=== PATIENT | female | born 1935 | race Caucasian/White ===

== ENCOUNTER 2021-11-28 11:41 | Inpatient (IN) ==
[2021-11-28] MEDS ORDERED: ONDANSETRON 4 MG/2 ML VIAL IV PRN (13:51)
[2021-11-28] MEDS ORDERED: ACETAMINOPHEN 325 MG TABLET PO PRN (13:51)
[2021-11-28] MEDS ORDERED: GLUCAGON 1 MG VIAL IM PRN (13:51)
[2021-11-28] MEDS ORDERED: MORPHINE 2 MG/1 ML SYRINGE IV PRN (13:51)
[2021-11-28] MEDS ORDERED: ZALEPLON 5 MG CAPSULE PO PRN (13:51)
[2021-11-28] MEDS ORDERED: DEXTROSE 10% 250 ML BAG IV PRN (13:51)
[2021-11-28] MEDS ORDERED: hydrALAZINE 20 MG/1 ML VIAL IV PRN (13:51)
[2021-11-28 14:37] LABS: Basophils % 0.5 % (0.0-0.8); Eosinophils # 0.1 10*3/uL (0.0-0.87); Eosinophils % 1.5 % (0.00-10.9); Hematocrit 36.6 VOL% (35.7-47.0); Hemoglobin 11.4 GM/DL (12.0-16.0); Immature Granulocytes % 0.5 %; Immature Granulocytes Absolute 0.04 #; Lymphocytes # 0.9 10*3/uL (1.4-4.0); Lymphocytes % 12.7 % (21.3-54.2); Mean Corpuscular HGB Conc 31.1 GM/DL (32-36); Mean Platelet Volume 11.3 FL (9.6-12.0); Monocytes % 7.3 % (1.7-12.7); Neutrophils % 77.5 % (38.7-73.9); Platelet Count 169 T/CUMM (130-400); Red Blood Count 4.16 MC/CUMM (3.8-5.5); Red Cell Distribution Width 14.4 % (9.3-17.3); White Blood Count 7.4 T/CUMM (4-12)
[2021-11-28 14:51] LABS: Albumin 2.7 G/DL (3.4-5.0); Bilirubin,Total 1.1 MG/DL (0.20-1.00); Calcium 8.6 MG/DL (8.5-10.1); Osmolality,Calculated 280.5 MOS/KG (273-304); Potassium 3.4 MMOL/L (3.5-5.1); Total Protein 6.8 G/DL (6.4-8.2)
[2021-11-28] MEDS ORDERED: POTASSIUM CHLORIDE 20 MEQ TABLET PO ONE (15:24)
[2021-11-28 16:19] LABS: Hepatitis B Core IgM Quant 0.14 Index; Hepatitis B Surface Ag Quant < 0.10 Index; Hepatitis B Surface Ag Result Non-Reactive (NonReactive); Hepatitis C Virus Ab Quant 0.05 Index; Hepatitis C Virus Ab Result Non-Reactive (NonReactive)
[2021-11-28] MEDS: POTASSIUM CHLORIDE INJ 20 MEQ in LACTATED RINGERS 1,000 ML IV SCH (19:19)
[2021-11-28] MEDS: DOCUSATE SODIUM 100 MG CAPSULE PO SCH (22:02)
[2021-11-28] MEDS: DONEPEZIL 10 MG TABLET PO SCH (22:02)
[2021-11-29] MEDS: POTASSIUM CHLORIDE INJ 20 MEQ in LACTATED RINGERS 1,000 ML IV SCH ×2 (04:30→14:55)
[2021-11-29 06:02] LABS: Albumin 2.5 G/DL (3.4-5.0); Bilirubin,Total 3.8 MG/DL (0.20-1.00); Calcium 8.6 MG/DL (8.5-10.1); Osmolality,Calculated 279.5 MOS/KG (273-304); Total Protein 6.9 G/DL (6.4-8.2)
[2021-11-29 06:08] LABS: Basophils % 0.5 % (0.0-0.8); Eosinophils % 0.6 % (0.00-10.9); Hematocrit 37.7 VOL% (35.7-47.0); Hemoglobin 11.9 GM/DL (12.0-16.0); Immature Granulocytes % 0.5 %; Immature Granulocytes Absolute 0.03 #; Lymphocytes # 0.9 10*3/uL (1.4-4.0); Lymphocytes % 13.9 % (21.3-54.2); Mean Corpuscular HGB Conc 31.6 GM/DL (32-36); Mean Corpuscular Volume 87.5 FL (87-102); Mean Platelet Volume 12.1 FL (9.6-12.0); Monocytes % 8.3 % (1.7-12.7); Neutrophils % 76.2 % (38.7-73.9); Platelet Count 198 T/CUMM (130-400); Red Blood Count 4.31 MC/CUMM (3.8-5.5); Red Cell Distribution Width 14.3 % (9.3-17.3); White Blood Count 6.4 T/CUMM (4-12)
[2021-11-29] MEDS: LEVOTHYROXINE 75 MCG TABLET PO SCH (06:30)
[2021-11-29] MEDS ORDERED: VANCOMYCIN INJ 1,000 MG in SODIUM CHLORIDE 0.9% 250 ML IV ONE (10:20)
[2021-11-29] MEDS ORDERED: ROCURONIUM 50 MG/5 ML VIAL IV ONE (10:33)
[2021-11-29] MEDS ORDERED: ETOMIDATE 40 MG/20 ML VIAL IV ONE (10:33)
[2021-11-29] MEDS ORDERED: SEVOFLURANE 1 UNIT/15 MINUTE INH ONE ×6 (10:33→13:10)
[2021-11-29] MEDS ORDERED: DEXAMETHASONE 4 MG/1 ML VIAL ONE ×2 (10:33→10:37)
[2021-11-29] MEDS ORDERED: ONDANSETRON 4 MG/2 ML VIAL ONE (10:33)
[2021-11-29] MEDS ORDERED: propofoL 200 MG/20 ML VIAL IV ONE (10:33)
[2021-11-29] MEDS ORDERED: LIDOCAINE 2% 5 ML VIAL ONE (10:33)
[2021-11-29] MEDS ORDERED: fentaNYL 100 MCG/2 ML VIAL ONE (10:36)
[2021-11-29] MEDS ORDERED: BUPIVACAINE MPF 0.5% 30 ML VIAL ONE (10:39)
[2021-11-29] MEDS ORDERED: DEXMEDETOMIDINE 200 MCG/2 ML VIAL ONE (10:40)
[2021-11-29] MEDS ORDERED: LIDOCAINE 1% 5 ML VIAL ONE (10:45)
[2021-11-29] MEDS ORDERED: PHENYLEPHRINE 1 MG/10 ML SYRINGE IV ONE (11:48)
[2021-11-29] MEDS ORDERED: PHENYLEPHRINE 10 MG/1 ML VIAL IV ONE (11:48)
[2021-11-29] MEDS ORDERED: ACETAMINOPHEN INJ 1,000 MG/100 ML VIAL IV ONE (12:06)
[2021-11-29] MEDS ORDERED: BACITRACIN OINT 0.9 GM PACK TOP ONE (12:32)
[2021-11-29] MEDS ORDERED: TRANEXAMIC ACID 1,000 MG/10 ML VIAL ONE (12:32)
[2021-11-29] MEDS ORDERED: GLYCOPYRROLATE 0.4 MG/2 ML VIAL ONE (13:07)
[2021-11-29] MEDS ORDERED: NEOSTIGMINE 10 MG/10 ML VIAL ONE (13:07)
[2021-11-29] MEDS ORDERED: MAGNESIUM HYDROXIDE SUSP 30 ML UDCUP PO PRN (13:55)
[2021-11-29] MEDS: DOCUSATE SODIUM 100 MG CAPSULE PO SCH ×2 (14:54→21:44)
[2021-11-29] MEDS: CALCIUM (CARBONATE) 500 MG TABLET PO SCH (14:54)
[2021-11-29] MEDS: CITALOPRAM 20 MG TABLET PO SCH (14:54)
[2021-11-29] MEDS: PANTOPRAZOLE 40 MG TABLET PO SCH (14:54)
[2021-11-29] MEDS: clonazePAM 0.5 MG TABLET PO SCH (14:54)
[2021-11-29] MEDS: KETOROLAC 15 MG/1 ML VIAL IV SCH ×2 (16:26→21:45)
[2021-11-29] MEDS: DONEPEZIL 10 MG TABLET PO SCH (21:45)
[2021-11-30] MEDS: POTASSIUM CHLORIDE INJ 20 MEQ in LACTATED RINGERS 1,000 ML IV SCH ×2 (01:11→15:23)
[2021-11-30] MEDS: KETOROLAC 15 MG/1 ML VIAL IV SCH (03:13)
[2021-11-30 05:36] LABS: Basophils % 0.1 % (0.0-0.8); Hematocrit 36.2 VOL% (35.7-47.0); Hemoglobin 11.4 GM/DL (12.0-16.0); Immature Granulocytes % 0.5 %; Immature Granulocytes Absolute 0.05 #; Lymphocytes # 0.5 10*3/uL (1.4-4.0); Lymphocytes % 5.3 % (21.3-54.2); Mean Corpuscular HGB Conc 31.5 GM/DL (32-36); Mean Corpuscular Volume 87.4 FL (87-102); Mean Platelet Volume 11.9 FL (9.6-12.0); Monocytes % 5.4 % (1.7-12.7); Neutrophils % 88.7 % (38.7-73.9); Platelet Count 214 T/CUMM (130-400); Red Blood Count 4.14 MC/CUMM (3.8-5.5); Red Cell Distribution Width 14.3 % (9.3-17.3); White Blood Count 9.5 T/CUMM (4-12)
[2021-11-30 05:52] LABS: Calcium 8.5 MG/DL (8.5-10.1); Osmolality,Calculated 282.4 MOS/KG (273-304); Potassium 4.3 MMOL/L (3.5-5.1)
[2021-11-30] MEDS: LEVOTHYROXINE 75 MCG TABLET PO SCH (05:52)
[2021-11-30 05:57] LABS: Albumin 2.4 G/DL (3.4-5.0); Bilirubin,Total 0.9 MG/DL (0.20-1.00); Calcium 8.5 MG/DL (8.5-10.1); Osmolality,Calculated 280.5 MOS/KG (273-304); Potassium 4.3 MMOL/L (3.5-5.1); Total Protein 6.4 G/DL (6.4-8.2)
[2021-11-30] MEDS: clonazePAM 0.5 MG TABLET PO SCH (08:11)
[2021-11-30] MEDS: CALCIUM (CARBONATE) 500 MG TABLET PO SCH (08:12)
[2021-11-30] MEDS: DOCUSATE SODIUM 100 MG CAPSULE PO SCH ×2 (08:12→21:42)
[2021-11-30] MEDS: CITALOPRAM 20 MG TABLET PO SCH (08:12)
[2021-11-30] MEDS: PANTOPRAZOLE 40 MG TABLET PO SCH (08:12)
[2021-11-30] MEDS: FONDAPARINUX 2.5 MG/0.5 ML SYRINGE SUBCUT SCH (08:13)
[2021-11-30] MEDS ORDERED: TUBERCULIN SKIN TEST 0.1 ML SYRINGE INTRADERM ONE (10:30)
[2021-11-30] MEDS: DONEPEZIL 10 MG TABLET PO SCH (21:42)
[2021-11-30] MEDS: DESITIN 4OZ/NYSTATIN 15 GRAM MIXTURE PASTE TOP SCH (21:47)
[2021-12-01] MEDS: POTASSIUM CHLORIDE INJ 20 MEQ in LACTATED RINGERS 1,000 ML IV SCH ×2 (03:30→09:09)
[2021-12-01 06:20] LABS: Basophils % 0.2 % (0.0-0.8); Eosinophils # 0.1 10*3/uL (0.0-0.87); Eosinophils % 0.7 % (0.00-10.9); Hemoglobin 11.4 GM/DL (12.0-16.0); Immature Granulocytes % 0.7 %; Immature Granulocytes Absolute 0.07 #; Lymphocytes # 1.4 10*3/uL (1.4-4.0); Lymphocytes % 12.9 % (21.3-54.2); Mean Corpuscular HGB Conc 31.7 GM/DL (32-36); Mean Platelet Volume 11.9 FL (9.6-12.0); Neutrophils % 78.5 % (38.7-73.9); Platelet Count 242 T/CUMM (130-400); Red Blood Count 4.14 MC/CUMM (3.8-5.5); Red Cell Distribution Width 14.2 % (9.3-17.3); White Blood Count 10.5 T/CUMM (4-12)
[2021-12-01] MEDS: LEVOTHYROXINE 75 MCG TABLET PO SCH (06:34)
[2021-12-01 06:42] LABS: Albumin 2.7 G/DL (3.4-5.0); Bilirubin,Total 1.1 MG/DL (0.20-1.00); Calcium 8.8 MG/DL (8.5-10.1); Osmolality,Calculated 273.8 MOS/KG (273-304); Potassium 4.3 MMOL/L (3.5-5.1); Total Protein 6.9 G/DL (6.4-8.2)
[2021-12-01] MEDS: DOCUSATE SODIUM 100 MG CAPSULE PO SCH (09:09)
[2021-12-01] MEDS: CITALOPRAM 20 MG TABLET PO SCH (09:09)
[2021-12-01] MEDS: CALCIUM (CARBONATE) 500 MG TABLET PO SCH (09:09)
[2021-12-01] MEDS: clonazePAM 0.5 MG TABLET PO SCH (09:09)
[2021-12-01] MEDS: PANTOPRAZOLE 40 MG TABLET PO SCH (09:09)
[2021-12-01] MEDS: FONDAPARINUX 2.5 MG/0.5 ML SYRINGE SUBCUT SCH (09:09)
[2021-12-01] MEDS: DESITIN 4OZ/NYSTATIN 15 GRAM MIXTURE PASTE TOP SCH (09:12)
[2021-12-01 11:10] VITALS: BP 149/71
== END 2021-12-01 13:10 | DRG 521 ==
LOC: EDBD → SUATTDRO → EDUNIT# → N.ED 11:41 → N.EDINP 13:51 → SUATTDRO 13:51 → N.3E 20:40
PROVIDERS: ADMIT Internal Medicine; ATTEND Internal Medicine Geriatric Medicine